=== PATIENT | female | born 1975 | race Caucasian/White ===

== ENCOUNTER 2023-07-08 13:19 | Outpatient (CLI) | payer OTHER, SELFPAY ==
--- NOTE | ~2023-07-08 | DEXA_ITS ---
Bone Density Report Name: CHANELL KNOX Age: 48 Sex: Female Ethnicity: White Date of : 1975 Indication: prolonged use of Depo Provera Referring Provider: ROSALINDA BEEBE Study: Bone densitometry was performed. Exam Date: July 08, 2023 Accession number: [id number] Bone Density: Region BMD T-score Z-score Classification AP Spine (L1-L4) 0.979 -0.6 0.0 Normal Femoral Neck (Left) 0.648 -1.8 -1.2 Osteopenia Total Hip (Left) 0.859 -0.7 -0.3 Normal Femoral Neck (Right) 0.684 -1.5 -0.9 Osteopenia Total Hip (Right) 0.851 -0.7 -0.4 Normal Total Hip Mean 0.855 -0.7 -0.4 Normal World Health Organization criteria for BMD impression classify patients as: Normal (T-score at or above -1.0), Osteopenia (T-score between -1.0 and -2.5), or Osteoporosis (T-score at or below -2.5). 10-year Fracture Risk(1): Major Osteoporotic Fracture 4.0% Hip Fracture 0.8% Reported Risk Factors: [place] (), Neck BMD=0.648, BMI=22.6, smoking (1) FRAX(R) Version 3.08. Fracture probability calculated for an untreated patient. Fracture probability may be lower if the patient has received treatment. Clinical Information Provided by Patient: Smokes Patient maximum height was 71 No regular weight bearing exercise Drinks caffeinated beverages Onset of menses at age 13 Premenopausal Number of children 0 Missed period for more than 6 months in a row Impression: The patient's bone mass is within expected range for age, gender and ethnicity. The patient has an estimated ten-year risk of hip fracture of 0.8% and an estimated ten-year risk of major fracture of 4%, based on the WHO FRAX algorithm. The patient has risk factors, including: smoking. Discussion: BONE DENSITY IS WITHIN EXPECTED LIMITS FOR AGE, SEX AND RACE. Bone density is within expected limits for age, sex and race at all sites measured. The patient should follow a healthful lifestyle (good nutrition with adequate calcium and vitamin D, and appropriate weight-bearing exercise). Follow-Up: Consider repeating this study in 2 to 3 years to reassess this patient's status, or sooner if there is some new clinical indication. Reported by: JUAN on 07/08/2023 2:08:00 PM. Reviewed, dictated and finalized at location [facility]
== END 2023-07-08 13:20 ==
PROVIDERS: PCP Obstetrics & Gynecology Gynecology; Visit Provider Obstetrics & Gynecology Gynecology
DX: Z30.42 Encounter for surveillance of injectable contraceptive (principal); M85.852 Other specified disorders of bone density and structure, left thigh; M85.851 Other specified disorders of bone density and structure, right thigh
CPT/HCPCS: 77080